=== PATIENT | female | born 1980 | race Two or more races ===

== ENCOUNTER → 2019-04-29 | Outpatient (CLI) | payer OTHER | END | disposition home or self-care (01) | LOC: PRENATAL 09:00 | DX: Z36.82 Encounter for antenatal screening for nuchal translucency (principal); O36.80X1 Pregnancy with inconclusive fetal viability, fetus 1; O09.521 Supervision of elderly multigravida, first trimester; Z36.0 Encounter for antenatal screening for chromosomal anomalies; O26.20 Pregnancy care for patient with recurrent pregnancy loss, unspecified trimester; Z3A.12 12 weeks gestation of pregnancy ==

== ENCOUNTER 2019-05-08 17:43 | Outpatient (CLI) | payer OTHER | END 2019-05-08 18:52 | disposition home or self-care (01) | LOC: LAB 17:43 | DX: Z00.00 Encounter for general adult medical examination without abnormal findings (principal) ==

== ENCOUNTER → 2019-06-20 | Outpatient (CLI) | payer OTHER | END | disposition home or self-care (01) | LOC: PRENATAL 08:00 | DX: O35.3XX1 Maternal care for (suspected) damage to fetus from viral disease in mother, fetus 1 (principal); O09.512 Supervision of elderly primigravida, second trimester; O26.22 Pregnancy care for patient with recurrent pregnancy loss, second trimester; O09.291 Supervision of pregnancy with other poor reproductive or obstetric history, first trimester; O26.852 Spotting complicating pregnancy, second trimester; O09.292 Supervision of pregnancy with other poor reproductive or obstetric history, second trimester ==

== ENCOUNTER → 2019-10-01 | Outpatient (CLI) | payer OTHER ==
[~2019-10-01] MED LIST: ASPIRIN81 M1 PO; PRENATAL CAPLE1 EAC1; ZYRTEC10 MG PO
== END | disposition home or self-care (01) ==
LOC: PRENATAL 13:00
PROVIDERS: ATTEND Obstetrics & Gynecology
DX: O26.843 Uterine size-date discrepancy, third trimester (principal); O36.8131 Decreased fetal movements, third trimester, fetus 1; O36.5931 Maternal care for other known or suspected poor fetal growth, third trimester, fetus 1

== ENCOUNTER → 2019-10-10 | Outpatient (CLI) | payer OTHER | END | disposition home or self-care (01) | LOC: PRENATAL 09:00 | PROVIDERS: ATTEND Obstetrics & Gynecology | DX: O26.843 Uterine size-date discrepancy, third trimester (principal); O36.8131 Decreased fetal movements, third trimester, fetus 1; O36.5931 Maternal care for other known or suspected poor fetal growth, third trimester, fetus 1 ==

== ENCOUNTER 2019-10-14 10:38 | Inpatient (IN) | payer OTHER ==
[~2019-10-14] VITALS: Ht 157.5 cm; Wt 71.7 kg
[2019-10-14] MEDS ORDERED: PRENATAL CAPLE1 EAC1 (11:50)
[2019-10-14] MEDS ORDERED: ASPIRIN81 M1 PO (11:50)
[2019-10-14] MEDS ORDERED: ZYRTEC10 MG PO (11:51)
== END 2019-10-15 16:04 | disposition home or self-care (01) | DRG 832 ==
LOC: LDR 10:38
PROVIDERS: ADMIT Obstetrics & Gynecology; ATTEND Obstetrics & Gynecology
PROC: 4A0HXFZ Measurement of Products of Conception, Cardiac Rhythm, External Approach (ICD-10-PCS; principal; 2019-10-14)
DX: O36.5930 Maternal care for other known or suspected poor fetal growth, third trimester, not applicable or unspecified (principal); O41.03X0 Oligohydramnios, third trimester, not applicable or unspecified; O35.0XX1 Maternal care for (suspected) central nervous system malformation in fetus, fetus 1

== ENCOUNTER 2019-10-17 05:04 | Inpatient (IN) | payer OTHER ==
[~2019-10-17] VITALS: Ht 157.5 cm; Wt 72.6 kg
== END 2019-10-19 15:13 | disposition home or self-care (01) | DRG 805 ==
LOC: OB/GYN 05:04 → LDR 05:04 → OB/GYN 07:40
PROVIDERS: ADMIT Obstetrics & Gynecology; ATTEND Obstetrics & Gynecology
PROC: 10E0XZZ Delivery of Products of Conception, External Approach (ICD-10-PCS; principal; 2019-10-17)
PROC: 0KQM0ZZ Repair Perineum Muscle, Open Approach (ICD-10-PCS; 2019-10-17)
PROC: 4A1HXCZ Monitoring of Products of Conception, Cardiac Rate, External Approach (ICD-10-PCS; 2019-10-17)
DX: O70.1 Second degree perineal laceration during delivery (principal); O60.14X1 Preterm labor third trimester with preterm delivery third trimester, fetus 1; O41.03X1 Oligohydramnios, third trimester, fetus 1; O42.013 Preterm premature rupture of membranes, onset of labor within 24 hours of rupture, third trimester; O36.5931 Maternal care for other known or suspected poor fetal growth, third trimester, fetus 1; Z3A.36 36 weeks gestation of pregnancy; Z37.0 Single live birth